=== PATIENT | female | born 1955 ===

== ENCOUNTER 2023-01-07 11:56 | Outpatient (CLI) | payer MEDICARE, SELFPAY ==
--- NOTE | ~2023-01-07 | XR_ITS ---
EXAMINATION: XR femur RT min 2V, XR hip RT 2V w AP pelvis DATE: 01/07/2023 12:30 INDICATION: Right hip and leg pain TECHNIQUE: 1. Anteroposterior view of the pelvis and anteroposterior and frog-leg lateral views of the right hip were obtained. 2. Anteroposterior and lateral views of the right femur were obtained on overlapping proximal and dis veronique images. COMPARISON: None. FINDINGS: Bone alignment is normal. No fracture or suspected avascular necrosis. Mild osteoarthritis at the alina ateral hips, right greater than left and mild bilateral sacroiliac osteoarthritis. Additionally there is osteoarthritis with mild joint space narrowing at the medial compartment of the right knee. Soft tissues are unremarkable. No right knee joint effusion. IMPRESSION: 1. Mild polyarticular osteoarthritis at the medial compartment of the right knee and at the bilateral hip and sacroiliac joints. Reviewed, dictated and finalized at location L. IMPRESSION: 1. Mild polyarticular osteoarthritis at the medial compartment of the right kne e and at the bilateral hip and sacroiliac joints.
--- NOTE | ~2023-01-07 | XR_ITS ---
Lumbosacral Spine: AP and lateral views Clinical History: Pain Findings: There is 11 degrees dextroscoliosis. No fracture identified. There is minimal grade 1 retro listhesis of L2 over L3, and of L3 over L4. There is moderate facet arthropathy throughout the lumbar spine. There is mild to moderate degenerative disc narrowing from L1 through L4. The sacroiliac join ts are normally outlined. Impression: Moderate degenerative spondylosis, as above. 11 degree dextroscoliosis. Reviewed, dictated and finalized at location M. Impression: Moderate degenerative spondylosis, as above. 11 degree dextroscoliosis.
== END 2023-01-07 11:57 | disposition home or self-care (01) ==
PROVIDERS: PCP Nurse Practitioner Adult Health; Visit Provider Nurse Practitioner Adult Health
DX: M54.30 Sciatica, unspecified side (principal); M47.897 Other spondylosis, lumbosacral region; M16.11 Unilateral primary osteoarthritis, right hip
CPT/HCPCS: 72100; 73502; 73552

== ENCOUNTER 2023-03-04 11:55 | Outpatient (CLI) | payer MEDICARE, SELFPAY ==
[2023-03-04 18:39] LABS: Hematocrit 43.3 % (37.0-47.0); Hemoglobin 13.8 g/dL (12.0-15.0); Mean Corpuscular HGB Conc 31.9 g/dl (32-36); Mean Corpuscular Hemoglobin 29.7 pg (26-34); Mean Corpuscular Volume 93.1 fl (80-100); Mean Platelet Volume 12.4 fl (7.4-10.4); Platelet Count Result 207 k/mm3 (150-375); Red Blood Count 4.65 M/mm3 (4.2-5.4); Red Cell Distribution Width 12.1 % (11.5-14.5); White Blood Count 5.6 K/mm3 (4.5-10.0)
[2023-03-04 18:43] LABS: Alanine Aminotransferase 19 U/L (6-35); Albumin Level 4.5 g/dL (3.5-5.1); Alkaline Phosphatase 66 U/L (38-126); Anion Gap 7 mmol/L (8-16); Aspartate Amino Transferase 53 U/L (14-36); Bilirubin,Total 0.7 mg/dL (0.2-1.3); Blood Urea Nitrogen 14 mg/dL (7-17); Calcium 9.7 mg/dL (8.4-10.2); Carbon Dioxide 29 mmol/L (22-30); Chloride 105 mmol/L (98-107); Cholesterol 204 mg/dL (0-200); Estimated Glomerular Filt Rate > 60; Glucose 89 mg/dL (65-110); HDL Direct 40 mg/dL; Potassium 4.7 mmol/L (3.4-5.0); Sodium 141 mmol/L (137-145); Triglycerides 128 mg/dL (<150)
[2023-03-04 18:54] LABS: LDL Cholesterol Direct 122 mg/dL
[2023-03-04 19:06] LABS: Erythrocyte Sedimentation Rate 13 mm/hr (0-20)
[2023-03-07 18:45] LABS: ANA Cascade Screen Negative (Negative)
== END 2023-03-04 11:56 | disposition home or self-care (01) ==
PROVIDERS: PCP Nurse Practitioner Adult Health; Visit Provider Nurse Practitioner Adult Health
DX: M25.50 Pain in unspecified joint (principal); E78.5 Hyperlipidemia, unspecified
CPT/HCPCS: 36415; 80053; 80061; 85027; 85652; 86038

== ENCOUNTER 2023-05-26 12:46 | Outpatient (CLI) | payer MEDICARE, SELFPAY ==
[2023-05-26 19:59] LABS: Appearance Urine Turbid (Clear); Bacteria Urine 4+ /hpf; Bilirubin Urine Negative (Negative); Blood Urine 3+ (Negative); Color Urine Yellow (Yellow); Glucose Urine UA Negative (Negative); Ketones Urine Negative (Negative); Leukocyte Esterase Ur 3+ LEU/UL (NEGATIVE); Need Manual Microscopic Reviewed; Nitrate Urine Positive (Negative); Protein Urine 1+ mg/dL (Negative); RBC Urine 51-100 /hpf (0-2); Specific Grav Ur 1.012 (1.001-1.035); Squamous Epithelial Cell Urine None seen /hpf (Few); Urobilinogen Urine 0.2 mg/dL (<2.0); WBC Urine >100 /hpf (0-3)
[2023-05-26 20:02] LABS: Add Urine Microscopic? YES
== END 2023-05-26 12:47 | disposition home or self-care (01) ==
PROVIDERS: PCP Nurse Practitioner Adult Health; Visit Provider Nurse Practitioner Adult Health
DX: R39.9 Unspecified symptoms and signs involving the genitourinary system (principal)
CPT/HCPCS: 81001

== ENCOUNTER 2023-07-01 13:55 | Outpatient (CLI) | payer MEDICARE, SELFPAY ==
[2023-07-01 22:23] LABS: Appearance Urine Turbid (Clear); Bacteria Urine 4+ /hpf; Bilirubin Urine Negative (Negative); Calcium Oxalate Crystals Urine Present /hpf; Color Urine Dark Yellow (Yellow); Glucose Urine UA Negative (Negative); Ketones Urine Negative (Negative); Leukocyte Esterase Ur 3+ LEU/UL (NEGATIVE); Nitrate Urine Positive (Negative); Non Pathogenic Casts 0-2; Protein Urine 4+ mg/dL (Negative); Specific Grav Ur 1.026 (1.001-1.035); Squamous Epithelial Cell Urine None seen /hpf (Few); WBC Urine 0-5 /hpf (0-3); pH Urine >=9.0 (5.0-9.0)
[2023-07-01 22:36] LABS: Add Urine Microscopic? YES
== END 2023-07-01 13:56 | disposition home or self-care (01) ==
PROVIDERS: PCP Nurse Practitioner Adult Health; Visit Provider Nurse Practitioner Adult Health
DX: R39.9 Unspecified symptoms and signs involving the genitourinary system (principal)
CPT/HCPCS: 81001